=== PATIENT | female | born 1955 ===

== ENCOUNTER 2020-05-08 11:26 | Inpatient (IN) | payer OTHER ==
[~2020-05-08] VITALS: Ht 167.6 cm; Wt 82.0 kg
[2020-05-08] MEDS ORDERED: SODIUM CHLORIDE FLUSH 10ML SYR IVF ONE (12:00)
--- NOTE | 2020-05-08 12:46 | NUR ---
RIGHT CHEST PORT ACCESSED.
[2020-05-08] MEDS ORDERED: LORazepam 2 MG/ML, 1ML ONE ×2 (12:56→14:01)
[2020-05-08 12:58] LABS: INTERNATIONAL NORMALIZED RATIO 1.07 (0.93-1.1); PROTHROMBIN TIME 11.4 Seconds (9.6-11.5)
[2020-05-08] MEDS ORDERED: LORazepam 2 MG/ML, 1ML IVPush ONE ×2 (13:00→14:00)
[2020-05-08 13:04] LABS: ALBUMIN 3.5 g/dL (3.4-5.0); ANION GAP 11 mmol/L (5-15); CALCIUM 8.6 mg/dL (8.5-10.1); CHLORIDE 105 mmol/L (98-107)
[2020-05-08 13:09] LABS: ALANINE AMINOTRANSFERASE 46 U/L (12-78); ALKALINE PHOSPHATASE 64 U/L (45-117); BILIRUBIN,TOTAL 0.8 mg/dL (0.2-1.0); CREATININE 0.71 mg/dL (0.55-1.02); TOTAL PROTEIN 7.2 g/dL (6.4-8.2); TROPONIN I < 0.015 ng/mL (0.000-0.045)
[2020-05-08 13:11] LABS: MEAN CORPUSCULAR HEMOGLOBIN 32.4 pg (27.0-34.8); MEAN CORPUSCULAR HGB CONC 33.7 g/dL (32.4-35.8); MEAN CORPUSCULAR VOLUME 96.2 fL (80-100); MEAN PLATELET VOLUME 8.7 fL (7.4-10.4); PLATELET COUNT 90 x10^3/uL (130-400); RED BLOOD COUNT 3.26 x10^6/uL (3.82-5.3); RED CELL DISTRIBUTION WIDTH 16.7 % (9.6-15.2)
[2020-05-08 13:12] LABS: MD YES
[2020-05-08 13:15] LABS: BAND#(MANUAL) 0.41 x10^3/uL; BANDS%(MANUAL) 11 % (0-7); LYMPH#(MANUAL) 0.37 x10^3/uL (1-3.4); LYMPHS% (MANUAL) 10 % (22-44); MONOS#(MANUAL) 0.33 x10^3/uL (0.3-2.7); MONOS% (MANUAL) 9 % (2-9); REACTIVE LYMPHS # (MANUAL) 0.04 x10^3/uL (0-0); REACTIVE LYMPHS % (MANUAL) 1 % (0-0); SEG#(MANUAL) 2.55 x10^3/uL (1.8-6.8); SEGS% (MANUAL) 69 % (42-75)
[2020-05-08 13:17] LABS: ANISOCYTOSIS 1+; OVALOCYTES 1+
[2020-05-08 13:18] LABS: <PLATELET ESTIMATE> DECREASED; <PLT MORPHOLOGY> NORMAL PLT MORPH; PMNS WITH VACUOLES 1+; TEAR DROPS 1+
--- NOTE | 2020-05-08 13:28 | NUR ---
DAUGHTER AT BEDSIDE. FALL PRECAUTIONS IN PLACE. VSS.
--- NOTE | 2020-05-08 13:57 | NUR ---
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
--- NOTE | 2020-05-08 13:58 | NUR ---
BEDSIDE REPORT GIVEN TO HEIDE PATEL. DAUGHTER KALEN PHONE NUMBER [phone].
--- NOTE | 2020-05-08 14:11 | NUR ---
PT HAD INCONT VOID, PAD CHANGED, PERICARE PROVIDED, PUREWICK PLACED, UNABLE TO OBTAIN UA SAMPLE AT THIS TIME, DR STALLWORTH AWARE.
--- NOTE | 2020-05-08 14:30 | NUR ---
1:1 SITTER AT BS
--- NOTE | 2020-05-08 15:02 | NUR ---
PT LAYING ON GURNEY WITH HOB ELEVATED, RESTLESS & CONFUSED- MEDICATED PER EMAR, COMFORT MEASURES PROVIDED, SITTER AT BS, CALL LIGHT WITHIN REACH.
--- NOTE | 2020-05-08 15:03 | NUR ---
PT TO CT
--- NOTE | 2020-05-08 15:20 | NUR ---
PT RETURNED FROM CT
[2020-05-08] MEDS ORDERED: CEFTRIAXONE PMX 1GM/50ML 50 ML ONE (15:52)
[2020-05-08] MEDS ORDERED: CEFTRIAXONE PMX 1GM/50ML 50 ML IVPB ONE (16:00)
--- NOTE | 2020-05-08 16:03 | NUR ---
PT LAYING ON GURNEY WITH HOB ELEVATED & EYES CLOSED, ABLE TO DOZE OFF BUT STILL RESTLESS & CONFUSED, COMFORT MEASURES PROVIDED, SITTER AT BS, CALL LIGHT WITHIN REACH.
--- NOTE | 2020-05-08 17:01 | NUR ---
PT CONTINUES LAYING ON GURNEY WITH HOB ELEVATED & EYES CLOSED, MOSTLY DOZING BUT STILL RESTLESS (PULLING AT LINES) & CONFUSED, COMFORT MEASURES PROVIDED, SITTER AT BS, CALL LIGHT WITHIN REACH.
[2020-05-08] MEDS ORDERED: LISI5TAB7 PO (17:10)
[2020-05-08] MEDS ORDERED: MONT10TA11 PO (17:10)
[2020-05-08] MEDS ORDERED: LACT1CAP35 PO (17:10)
[2020-05-08] MEDS ORDERED: MULT-658 PO (17:10)
[2020-05-08] MEDS ORDERED: LOVA40TA2 PO (17:10)
[2020-05-08] MEDS ORDERED: SPIR25TA5 PO (17:10)
[2020-05-08] MEDS ORDERED: ANAS1TAB49 PO (17:10)
[2020-05-08] MEDS ORDERED: METF500T17 PO (17:10)
[2020-05-08] MEDS ORDERED: LORA10TA62 PO (17:10)
[2020-05-08] MEDS ORDERED: LEVO150T5 PO (17:10)
[2020-05-08] MEDS ORDERED: CARV-39 PO (17:10)
[2020-05-08] MEDS ORDERED: LANTUS (17:10)
--- NOTE | 2020-05-08 17:52 | NUR ---
Pt to be admitted to med-onc, room 431. Report called to gigi.
[2020-05-08 18:17] LABS: MICROSCOPIC INDICATED
[2020-05-08] MEDS ORDERED: LACTATED RINGERS 1,000 ML IVBOLUS ONE (18:30)
[2020-05-08] MEDS ORDERED: ONDANSETRON 2MG/ML, 2ML IVPush PRN (18:30)
[2020-05-08] MEDS ORDERED: METOCLOPRAMIDE 5 MG/ML, 2ML IVPush PRN (18:30)
[2020-05-08 18:54] VITALS: BP 138/72
[2020-05-08 19:54] VITALS: BP 138/72
[2020-05-08] MEDS: ENOXAPARIN 40 MG/0.4 ML SQ SCH (21:20)
[2020-05-08] MEDS: INSULIN LISPRO 100 UNITS/ML, PEN SQ-INSULIN SCH (21:21)
[2020-05-09] MEDS: AMPICILLIN/SULBACTAM 3 GM in SODIUM CHLORIDE 0.9% 100 ML IV SCH ×5 (00:19→23:59)
[2020-05-09 00:42] VITALS: BP 128/75
[2020-05-09] MEDS: DOXYCYCLINE 100 MG in DEXTROSE 5% 250 ML IV SCH ×2 (01:12→13:52)
[2020-05-09] MEDS: POTASSIUM CHLORIDE 20 MEQ in LACTATED RINGERS 1,000 ML IV SCH ×2 (02:41→18:39)
[2020-05-09 05:12] LABS: MEAN CORPUSCULAR HGB CONC 33.4 g/dL (32.4-35.8); MEAN CORPUSCULAR VOLUME 95.9 fL (80-100); MEAN PLATELET VOLUME 9.1 fL (7.4-10.4); PLATELET COUNT 81 x10^3/uL (130-400); RED BLOOD COUNT 3.41 x10^6/uL (3.82-5.3); RED CELL DISTRIBUTION WIDTH 16.9 % (9.6-15.2)
[2020-05-09 05:16] LABS: ALANINE AMINOTRANSFERASE 47 U/L (12-78); ALBUMIN 3.3 g/dL (3.4-5.0); ANION GAP 7 mmol/L (5-15); CHLORIDE 106 mmol/L (98-107); CREATININE 0.63 mg/dL (0.55-1.02)
[2020-05-09 05:18] LABS: ALKALINE PHOSPHATASE 64 U/L (45-117); BILIRUBIN,TOTAL 0.6 mg/dL (0.2-1.0); TOTAL PROTEIN 6.9 g/dL (6.4-8.2)
[2020-05-09 05:46] LABS: BASOPHILS # (AUTO) 0.01 x10^3/uL (0-0.1); BASOPHILS % (AUTO) 0 % (0-1); EOSINOPHILS % (AUTO) 0 % (1-7); LYMPHOCYTES # (AUTO) 0.27 x10^3/uL (1-3.4); LYMPHOCYTES % (AUTO) 11 % (22-44); MD SCAN; MONOCYTES # (AUTO) 0.29 x10^3/uL (0.2-0.8); MONOCYTES % (AUTO) 12 % (2-9); NEUTROPHILS # (AUTO) 1.91 x10^3/uL (1.8-6.8); NEUTROPHILS % (AUTO) 77 % (42-75)
[2020-05-09 06:50] VITALS: BP 144/78
[2020-05-09] MEDS: INSULIN LISPRO 100 UNITS/ML, PEN SQ-INSULIN SCH ×4 (07:00→21:00)
[2020-05-09 13:17] VITALS: BP 126/74
[2020-05-09 18:59] VITALS: BP 119/69
[2020-05-09] MEDS: ENOXAPARIN 40 MG/0.4 ML SQ SCH (21:25)
[2020-05-10] MEDS: DOXYCYCLINE 100 MG in DEXTROSE 5% 250 ML IV SCH ×2 (01:08→13:02)
[2020-05-10 01:30] VITALS: BP 123/74
[2020-05-10] MEDS: AMPICILLIN/SULBACTAM 3 GM in SODIUM CHLORIDE 0.9% 100 ML IV SCH ×4 (05:45→23:51)
[2020-05-10] MEDS: INSULIN LISPRO 100 UNITS/ML, PEN SQ-INSULIN SCH ×4 (07:00→21:14)
[2020-05-10 07:03] VITALS: BP 134/79
[2020-05-10 12:40] VITALS: BP 125/74
[2020-05-10] MEDS: MORPHINE SULFATE 4 MG/ML, 1ML IVPush PRN ×2 (13:13→17:57)
[2020-05-10 18:36] VITALS: BP 120/66
[2020-05-10] MEDS ORDERED: LOVASTATIN 40 MG TABLET PO SCH (21:00)
[2020-05-10] MEDS: DOXYCYCLINE 100MG TABLET PO SCH (21:13)
[2020-05-10] MEDS: CARVEDILOL 25 MG TABLET PO SCH (21:13)
[2020-05-10] MEDS: metFORMIN 500 MG TABLET PO SCH (21:13)
[2020-05-10] MEDS: ENOXAPARIN 40 MG/0.4 ML SQ SCH (21:17)
[2020-05-11 00:03] VITALS: BP 101/61
[2020-05-11] MEDS: MORPHINE SULFATE 4 MG/ML, 1ML IVPush PRN ×2 (00:03→09:50)
[2020-05-11] MEDS ORDERED: LEVOTHYROXINE 150 MCG TABLET PO SCH (06:00)
[2020-05-11] MEDS: AMPICILLIN/SULBACTAM 3 GM in SODIUM CHLORIDE 0.9% 100 ML IV SCH ×2 (06:11→11:39)
[2020-05-11 06:32] LABS: ALBUMIN 2.8 g/dL (3.4-5.0); ANION GAP 8 mmol/L (5-15); CALCIUM 8.3 mg/dL (8.5-10.1); CHLORIDE 103 mmol/L (98-107)
[2020-05-11 06:35] LABS: ALANINE AMINOTRANSFERASE 32 U/L (12-78); ALKALINE PHOSPHATASE 67 U/L (45-117); BILIRUBIN,TOTAL 0.7 mg/dL (0.2-1.0); CREATININE 0.64 mg/dL (0.55-1.02); TOTAL PROTEIN 6.3 g/dL (6.4-8.2)
[2020-05-11 06:36] LABS: MEAN CORPUSCULAR HEMOGLOBIN 31.9 pg (27.0-34.8); MEAN CORPUSCULAR HGB CONC 33.5 g/dL (32.4-35.8); MEAN CORPUSCULAR VOLUME 95.2 fL (80-100); RED BLOOD COUNT 2.97 x10^6/uL (3.82-5.3)
[2020-05-11] MEDS: INSULIN LISPRO 100 UNITS/ML, PEN SQ-INSULIN SCH ×2 (06:50→11:00)
[2020-05-11 07:07] LABS: MEAN PLATELET VOLUME 9.3 fL (7.4-10.4); PLATELET COUNT 90 x10^3/uL (130-400)
[2020-05-11 07:56] LABS: MD YES
[2020-05-11 08:01] LABS: BAND#(MANUAL) 0.07 x10^3/uL; BANDS%(MANUAL) 4 % (0-7); LYMPH#(MANUAL) 0.34 x10^3/uL (1-3.4); LYMPHS% (MANUAL) 20 % (22-44); METAMYELOCYTES# (MANUAL) 0.02 x10^3/uL (0-0); METAMYELOCYTES% (MANUAL) 1 % (0-1); MONOS#(MANUAL) 0.09 x10^3/uL (0.3-2.7); MONOS% (MANUAL) 5 % (2-9); SEG#(MANUAL) 1.19 x10^3/uL (1.8-6.8); SEGS% (MANUAL) 70 % (42-75)
[2020-05-11 08:02] LABS: <PLATELET ESTIMATE> DECREASED; <PLT MORPHOLOGY> NORMAL PLT MORPH; ANISOCYTOSIS 1+
[2020-05-11] MEDS ORDERED: MULTIVITAMIN 1 TABLET PO SCH (09:00)
[2020-05-11] MEDS ORDERED: MONTELUKAST 10 MG TABLET PO SCH (09:00)
[2020-05-11] MEDS ORDERED: ANASTROZOLE 1 MG TABLET PO SCH (09:00)
[2020-05-11] MEDS ORDERED: LISINOPRIL 40 MG TABLET PO SCH (09:00)
[2020-05-11] MEDS ORDERED: SPIRONOLACTONE 25 MG TABLET PO SCH (09:00)
[2020-05-11] MEDS ORDERED: TBO-FILGRASTIM 480 MCG/0.8 ML SQ SCH (09:30)
[2020-05-11 09:47] VITALS: BP 115/68
[2020-05-11] MEDS: DOXYCYCLINE 100MG TABLET PO SCH (09:51)
[2020-05-11] MEDS: metFORMIN 500 MG TABLET PO SCH (09:51)
[2020-05-11] MEDS: CARVEDILOL 25 MG TABLET PO SCH (09:51)
[2020-05-11] MEDS ORDERED: AMOX1TAB64 PO (12:15)
[2020-05-11] MEDS ORDERED: DOXY100T PO (12:15)
[2020-05-11 13:57] VITALS: BP 95/51
== END 2020-05-11 16:23 | disposition home or self-care (01) | DRG 871 ==
LOC: EDBD 11:26 → ED 16:11 → EDIP 16:12 → ED 17:38 → 4NW 18:19
PROVIDERS: ADMIT Internal Medicine; ATTEND Internal Medicine
DX: A41.9 Sepsis, unspecified organism (principal); G92 Toxic encephalopathy; J15.9 Unspecified bacterial pneumonia; J96.91 Respiratory failure, unspecified with hypoxia; C78.00 Secondary malignant neoplasm of unspecified lung; C79.31 Secondary malignant neoplasm of brain; D61.818 Other pancytopenia; C50.919 Malignant neoplasm of unspecified site of unspecified female breast; D64.9 Anemia, unspecified; E11.65 Type 2 diabetes mellitus with hyperglycemia; J45.909 Unspecified asthma, uncomplicated; S41.111A Laceration without foreign body of right upper arm, initial encounter; W18.39XA Other fall on same level, initial encounter; Y93.89 Activity, other specified; Y92.89 Other specified places as the place of occurrence of the external cause; Y99.8 Other external cause status; Z79.4 Long term (current) use of insulin; Z85.3 Personal history of malignant neoplasm of breast; Z85.841 Personal history of malignant neoplasm of brain; Z87.891 Personal history of nicotine dependence; Z90.11 Acquired absence of right breast and nipple; Z92.3 Personal history of irradiation; Z88.5 Allergy status to narcotic agent; I50.9 Heart failure, unspecified
CPT/HCPCS: 36415; 70450; 71045; 80053; 81001; 82140; 82962; 83605; 83735; 83880; 84100; 84484; 85025; 85610; 85730; 87040; 87081; 87086; 93005; 95819; G0378; J0295; J0696; J1650; J2405; J3480; J7060; J1447; J1815; J2060; J2270; J7120